=== PATIENT | female | born 1960 | race African-American/Black ===

== ENCOUNTER 2022-04-07 17:28 | Emergency (ER) | payer OTHER ==
[~2022-04-07] VITALS: Ht 175.3 cm; Wt 81.6 kg
[2022-04-07 18:03] VITALS: BP 120/80
[2022-04-07 19:37] VITALS: BP 113/78
--- NOTE | 2022-04-07 19:37 | NUR ---
Seen by ER MD no nursing interventions provided for this patient.
--- NOTE | 2022-04-07 19:37 | NUR ---
Patient discharged. Written and verbal after care instructions given and explained. Patient verbalized understanding. Ambulatory with steady gait. ID band removed. All questions addressed prior to discharge. Advised to follow up with PMD.
== END 2022-04-07 19:37 | disposition home or self-care (01) ==
LOC: MED 17:28
DX: S39.012A Strain of muscle, fascia and tendon of lower back, initial encounter (principal); M54.2 Cervicalgia; G89.29 Other chronic pain; E11.9 Type 2 diabetes mellitus without complications; I10 Essential (primary) hypertension; Z98.890 Other specified postprocedural states; V89.2XXA Person injured in unspecified motor-vehicle accident, traffic, initial encounter; Y93.89 Activity, other specified; Y92.411 Interstate highway as the place of occurrence of the external cause; Y99.8 Other external cause status
CPT/HCPCS: 99281